=== PATIENT | female | born 1970 | race Two or more races ===

== ENCOUNTER 2024-12-12 06:03 | Inpatient (IN) | payer OTHER, SELFPAY ==
[2024-12-03 11:27] LABS: Hematocrit 38.2 % (37.0-47.0); Hemoglobin 12.7 g/dL (12.0-16.0); Mean Corp Hgb Conc. 33.2 g/dL (33.0-37.0); Mean Corpuscular Hgb 32.3 pg (27.0-31.0); Mean Corpuscular Volume 97.2 fL (81.0-99.0); Mean Platelet Volume 8.9 fL (7.4-10.4); Platelet Count 384 10^3/uL (130-400); Red Blood Cell Count 3.93 10^6/uL (4.20-5.40); Red Cell Dist. Width 12.6 % (11.5-14.5); White Blood Cell Count 6.2 10^3/uL (4.8-10.8)
[2024-12-03 11:30] LABS: INR 0.91; PT 12.6 Sec (11.4-14.6)
[2024-12-03 11:47] LABS: ALT (SGPT) 18 U/L (0-35); AST (SGOT) 22 U/L (14-36); Albumin 4.7 g/dl (3.5-5.0); Alkaline Phosphatase 74 U/L (38-126); Blood Urea Nitrogen 16 mg/dl (7-17); Calcium 9.6 mg/dl (8.4-10.2); Carbon Dioxide 31 mmol/L (22-30); Chloride 100 mmol/L (98-107); Glucose 91 mg/dl (70-99); Potassium 3.9 mmol/L (3.5-5.1); Sodium 140 mmol/L (135-145); Total Bilirubin 0.7 mg/dl (0.2-1.3); Total Protein 7.5 g/dl (6.3-8.2); eGFR > 60.00
[2024-12-03 11:56] LABS: Glycohemoglobin (HgbA1c) 5.8 % (4.0-5.6)
[2024-12-03 14:04] VITALS: BMI 27.9
[2024-12-12] VITALS (17 sets, daily range): BP systolic 121–132; BP diastolic 69–79; BMI 27.9
[2024-12-12] MEDS: NORMOSOL-R/PLASMALYTE-A 1000 IV ×2 (07:11→13:22)
[2024-12-12] MEDS: TYLENOL 1000 MG PO (07:11)
[2024-12-12] MEDS: ENTEREG 12 MG PO (07:11)
[2024-12-12] MEDS: HEPARIN 5000 UNITS SC (07:11)
--- NOTE | 2024-12-12 11:48 | W.IMMPOSTOP ---
Surgical Immed Post Op Note
-
Primary Surgeon: Joey Castanon MD
Assistants: HUBER Acuña and FARSHAD Burton
Pre-op Diagnosis: Recurrent sigmoid diverticulitis
Post-op Diagnosis: Same
Procedure Performed: Robotic sigmoid colectomy with intracorporeal anastomosis
Anesthesia Type: GET
Specimen / Cultures: Sigmoid colon (suture is proximal)
Estimated Blood Loss: 25cc
Complications: None
Operative Findings: Acute and chronic distal sigmoid diverticulitis
28mm EEA
Normal leak test
Patient's updated in the waiting room.
[2024-12-12] MEDS: DILAUDID 0.5 MG IV ×3 (13:12→19:41)
[2024-12-12] MEDS: TORADOL 15 MG IV ×3 (13:25→23:23)
--- NOTE | 2024-12-12 14:09 | SUR.PHASEI ---
medicated for pain with toradol and dilaudid with some relief. taking few ice chips po. urine output adequate. called x2 with updates and room #
[2024-12-12] MEDS: TYLENOL PO (14:48)
[2024-12-12] MEDS: TYLENOL 650 MG PO ×3 (16:44→23:23)
[2024-12-12] MEDS: MYLICON 80 MG PO (23:23)
[2024-12-13] MEDS: NORMOSOL-R/PLASMALYTE-A 1000 IV (01:03)
[2024-12-13 03:00] VITALS: BP 111/65
[2024-12-13] MEDS: TYLENOL PO (03:50)
[2024-12-13] MEDS: DILAUDID 0.5 MG IV (05:17)
[2024-12-13 05:19] VITALS: BMI 27.4
[2024-12-13] MEDS: TORADOL 15 MG IV ×4 (06:20→23:08)
[2024-12-13 06:59] VITALS: BP 113/67
[2024-12-13 07:22] LABS: % Basophils 0.2 % (0-2); % Eosinophils 0.4 % (0-6); % Immature Granulocytes 0.4 % (0-0.5); % Lymphocytes 19.1 % (20.5-51.1); % Monocytes 10.5 % (1.7-9.3); % Neutrophils 69.4 % (42.2-75.2); Absolute Lymphocytes 2.1 10^3/uL (1.2-3.4); Absolute Monocytes 1.2 10^3/uL (0.1-0.6); Absolute Neutrophils 7.7 10^3/uL (1.4-6.5); Hematocrit 30.6 % (37.0-47.0); Hemoglobin 10.6 g/dL (12.0-16.0); Mean Corp Hgb Conc. 34.6 g/dL (33.0-37.0); Mean Corpuscular Hgb 32.9 pg (27.0-31.0); Mean Platelet Volume 9.1 fL (7.4-10.4); Nucleated Red Blood Cells % 0 %; Platelet Count 322 10^3/uL (130-400); Red Blood Cell Count 3.22 10^6/uL (4.20-5.40); Red Cell Dist. Width 12.3 % (11.5-14.5); White Blood Cell Count 11.1 10^3/uL (4.8-10.8)
[2024-12-13 07:49] LABS: Blood Urea Nitrogen 9 mg/dl (7-17); Calcium 8.8 mg/dl (8.4-10.2); Carbon Dioxide 32 mmol/L (22-30); Chloride 97 mmol/L (98-107); Estimated Creatinine Clearance 90 ml/min; Glucose 113 mg/dl (70-99); Potassium 3.3 mmol/L (3.5-5.1); Sodium 135 mmol/L (135-145); eGFR > 60.00
[2024-12-13] MEDS: TYLENOL 650 MG PO ×5 (08:14→23:08)
[2024-12-13] MEDS: ORETIC 12.5 MG PO (08:14)
[2024-12-13] MEDS: ENTEREG 12 MG PO ×2 (08:14→20:04)
[2024-12-13] MEDS: ZESTRIL 20 MG PO (08:14)
[2024-12-13] MEDS: MYLICON 80 MG PO ×3 (08:15→23:12)
[2024-12-13] MEDS: ROXICODONE 5 MG PO ×2 (08:33→20:12)
--- NOTE | 2024-12-13 08:50 | W.PN.CRS1 ---
Today's Communication / Plan
-
fulls
d/c pierce
lovenox
Assessment/Plan
-
POD#1 Robotic sigmoid colectomy with intracorporeal anastomosis
WBC 11.1, vitals normal
-Advance to full liquids
-D/C IVfs when tolerating po
-D/C pierce
-Pain control: Tylenol/Toradol standing, Dilaudid PRN
-Lovenox for DVT prophylaxis, TEDS/SCDS in place
-OR pathology pending
-OOB as tolerated
-OKay to shower
Subjective Data
Procedure
12/12/2024- Robotic sigmoid colectomy with intracorporeal anastomosis
Subjective Data
Date of Service: December 13, 2024
Patient states she is hungry. She tolerated clears. She has no nausea or vomiting. She has no bowel function yet. Her pain is minimal and controlled.
Objective Data
-
Vital Signs
Temp Pulse Resp BP Pulse Ox
98.9 F 76 16 113/67 95
12/13/24 06:59 12/13/24 08:14 12/13/24 06:59 12/13/24 08:14 12/13/24 06:59
Intake & Output
12/12/24 12/13/24 12/14/24
06:59 06:59 06:59
Intake Total 490 / 490 1440 / 1440
Output Total 900 / 900
Balance -410 / -410 1440 / 1440
Intake:
Oral fluids 40 / 40 480 / 480
IV fluids (Total) 450 / 450 960 / 960
normosol 450 / 450
Output:
Urine, Pierce 900 / 900
Lab Results
12/13/24 06:44
12/13/24 06:44
Physical Exam
-
General: No Acute Distress and AOx3
Abdomen: Soft, Non Distended and Tender (mild around incisions)
Skin: Warm and Dry
Incision: Clear, Dry, Intact
[2024-12-13] MEDS: LOVENOX 40 MG SC (09:25)
--- NOTE | 2024-12-13 09:38 | PTCARENOTE ---
Tompkins removed per colorectal surgery order, patient due to void by 1545. Patient tolerating clear liquid diet, diet advanced to fulls, patient made aware. Patient medicated with PRN 5 mg oxycodone for abd pain rated 6/10 - see MAR. 5 lap sites
approximated with surgical adhesive, SCDs in place, patient ringing appropriately.
[2024-12-13] MEDS: ROXICODONE 10 MG PO ×2 (10:43→16:27)
--- NOTE | 2024-12-13 12:06 | CM ---
CM reviewed medical records. CM met with patient in room. Patient confirmed demographics. Patient lives independently with . Patient does not have a history of VN, SNF or DME. Patient is active with her PCP. Patient uses [facility] for medication
services.
PLAN: home no needs.
[2024-12-13 15:24] VITALS: BP 104/61
--- NOTE | 2024-12-13 18:47 | PTCARENOTE ---
Patient voiding in bathroom after pierce removal, states no BM this shift but passing gas frequently, medicated with PRN PO oxycodone throughout shift for abd discomfort and cramping - see MAR. Patient ambulatory in room and webster, tolerating full
liquid diet.
[2024-12-13 23:11] VITALS: BP 107/64
[2024-12-14] MEDS: ROXICODONE 5 MG PO ×3 (02:58→19:34)
[2024-12-14] MEDS: TYLENOL 650 MG PO ×6 (03:00→23:16)
[2024-12-14] MEDS: TORADOL 15 MG IV ×4 (05:13→23:16)
[2024-12-14 05:28] VITALS: BMI 27.3
[2024-12-14 07:02] VITALS: BP 119/67
[2024-12-14 07:36] LABS: % Basophils 0.5 % (0-2); % Immature Granulocytes 0.4 % (0-0.5); % Lymphocytes 19.4 % (20.5-51.1); % Monocytes 11.7 % (1.7-9.3); Absolute Basophils 0.1 10^3/uL (0-0.2); Absolute Eosinophils 0.3 10^3/uL (0-0.7); Absolute Lymphocytes 1.9 10^3/uL (1.2-3.4); Absolute Monocytes 1.2 10^3/uL (0.1-0.6); Absolute Neutrophils 6.4 10^3/uL (1.4-6.5); Hematocrit 30.4 % (37.0-47.0); Hemoglobin 10.4 g/dL (12.0-16.0); Mean Corp Hgb Conc. 34.2 g/dL (33.0-37.0); Mean Corpuscular Hgb 32.6 pg (27.0-31.0); Mean Corpuscular Volume 95.3 fL (81.0-99.0); Mean Platelet Volume 8.6 fL (7.4-10.4); Nucleated Red Blood Cells % 0 %; Platelet Count 317 10^3/uL (130-400); Red Blood Cell Count 3.19 10^6/uL (4.20-5.40); Red Cell Dist. Width 12.5 % (11.5-14.5); White Blood Cell Count 9.9 10^3/uL (4.8-10.8)
[2024-12-14 08:05] LABS: Blood Urea Nitrogen 6 mg/dl (7-17); Calcium 8.9 mg/dl (8.4-10.2); Carbon Dioxide 34 mmol/L (22-30); Chloride 99 mmol/L (98-107); Estimated Creatinine Clearance 105 ml/min; Glucose 113 mg/dl (70-99); Sodium 139 mmol/L (135-145); eGFR > 60.00
[2024-12-14] MEDS: ORETIC 12.5 MG PO (08:05)
[2024-12-14] MEDS: ENTEREG 12 MG PO ×2 (08:06→19:33)
[2024-12-14] MEDS: ZESTRIL 20 MG PO (08:09)
--- NOTE | 2024-12-14 10:55 | W.PN.CRS1 ---
Today's Communication / Plan
-
Low residue
Assessment/Plan
-
POD#2 Robotic sigmoid colectomy with intracorporeal anastomosis (Recurrent sigmoid diverticulitis)
WBC 9.9 (11.1), vitals normal
-Advance to low residue diet
- Voiding post Tompkins removal
-Pain control: Tylenol/Toradol standing, Dilaudid PRN
-Lovenox for DVT prophylaxis, TEDS/SCDS in place
-OR pathology pending
-OOB as tolerated
-OKay to shower
- Possible discharge later today if feeling well. If not we will plan for tomorrow.
Subjective Data
Procedure
12/12/2024- Robotic sigmoid colectomy with intracorporeal anastomosis
Subjective Data
Date of Service: December 14, 2024
Patient states she was not feeling that well today. She has some abdominal pain.. She is not hungry.
Objective Data
-
Vital Signs
Temp Pulse Resp BP Pulse Ox
98.5 F 87 16 119/67 94
12/14/24 07:02 12/14/24 08:09 12/14/24 07:02 12/14/24 08:09 12/14/24 07:02
Intake & Output
12/13/24 12/14/24 12/15/24
06:59 06:59 06:59
Intake Total 490 / 490 2640 / 2640
Output Total 900 / 900
Balance -410 / -410 2640 / 2640
Intake:
Oral fluids 40 / 40 1680 / 1680
IV fluids (Total) 450 / 450 960 / 960
normosol 450 / 450
Output:
Urine, Tompkins 900 / 900
Other:
Number of approximated MODERATE 2
amounts of urine
Lab Results
12/14/24 07:24
04/11/25 07:24
Physical Exam
-
General: No Acute Distress and AOx3
Abdomen: Soft, Non Distended and Tender (Mild around incision)
Skin: Warm and Dry
Incision: Clear, Dry, Intact
--- NOTE | 2024-12-14 11:07 | CM ---
Cm reviewed medical records. Patient is ADAT. As per surgery, possible discharge for today. Cm will remain available.
PLAN; Home no needs.
[2024-12-14] MEDS: KCL 40 MEQ PO (11:27)
--- NOTE | 2024-12-14 14:11 | PN.CDI ---
CDI
- -
CDI:
Physician Documentation Request
Admit Date: 12/12/24 06:03
Dear Doctor Lg/Kacie WHATLEY ,
Please review the following and provide your response in the progress notes.
Clinical Indicators:
Pt admitted with Recurrent sigmoid diverticulitis s/p Robotic sigmoid colectomy with intracorporeal anastomosis
Progress note 12/13 ,' Hgb is low due to dilutional and blood loss from surgery...'
Trended HGB/Hematocrit below
12/03/24 12/14/24
08:35 07:24
Hgb 12.7 10.4 L
Hct 38.2 30.4 L
Please further specify a diagnosis for HGB /'Blood loss from surgery' above :
Acute blood loss anemia
Abnormal lab value only
Other ( please specify)
Use of terms such as suspected, likely, concern for, or probable (associated with a specific diagnosis that is being evaluated, monitored, or treated as if it exists) are acceptable and can be coded in the inpatient setting, when documented at the
time of discharge.
Thank you,
Juana Watson RN
CDI Specialist
[place] [facility]
Please use your independent medical judgment in providing your response.
--- NOTE | 2024-12-14 14:19 | PN.CDI ---
CDI
- -
CDI:
Physician Documentation Request
Admit Date: 12/12/24 06:03
Dear Doctor Lg/Kacie WHATLEY,
Please review the following and provide your response in the progress notes.
Clinical Indicators:
Pt admitted with Recurrent sigmoid diverticulitis s/p Robotic sigmoid colectomy with intracorporeal anastomosis
Potassium levels are as below/ Per MAR did get 40 MEQ KCL 12/14
12/13/24 12/14/24
06:44 07:24
Potassium 3.3 L 3.0 L
Based on the above, could you clarify in the progress notes, the appropriate diagnosis, if significant, that supports the above abnormalities and additional evaluation, monitoring and/or treatment rendered:
Hypokalemia
Abnormal lab value only
Other ( please specify)
Use of terms such as suspected, likely, concern for, or probable (associated with a specific diagnosis that is being evaluated, monitored, or treated as if it exists) are acceptable and can be coded in the inpatient setting, when documented at the
time of discharge.
Thank you,
Juana Watson RN
CDI Specialist
[place] [facility]
Please use your independent medical judgment in providing your response.
[2024-12-14 15:02] VITALS: BP 137/80
[2024-12-14] MEDS: ZOFRAN 4 MG IV (15:24)
[2024-12-14] MEDS: ROXICODONE 10 MG PO (15:27)
--- NOTE | 2024-12-14 16:00 | PTCARENOTE ---
Addendum entered by Valeria Alejandro RN 12/14/24 19:23:
Patient states improvement of symptoms s/p PRN zofran and oxy, showered independently and ambulated in webster with spouse. Low residue diet at bedside, patient states no concerns on change of shift rounds with night nurse RN.
Original Note:
Patient's diet advanced to low residue per colorectal surgery, patient ate small amount for lunch before c/o nausea and abd pain rated 6/10. Patient medicated with PRN zofran and 10 mg PO oxy, colorectal made aware of patient complaints, no new
orders at this time.
[2024-12-14 23:13] VITALS: BP 114/66
[2024-12-15] MEDS: TYLENOL PO (04:00)
[2024-12-15 06:00] VITALS: BMI 27.2
[2024-12-15] MEDS: TORADOL 15 MG IV ×2 (06:13→11:47)
[2024-12-15 07:05] VITALS: BP 115/72
[2024-12-15] MEDS: ORETIC 12.5 MG PO (08:06)
[2024-12-15] MEDS: ZESTRIL 20 MG PO (08:06)
[2024-12-15] MEDS: ENTEREG 12 MG PO (08:06)
[2024-12-15] MEDS: TYLENOL 650 MG PO ×2 (08:06→11:47)
--- NOTE | 2024-12-15 09:32 | W.PN.CRS1 ---
Today's Communication / Plan
-
Dispo planning
Assessment/Plan
-
POD#3 Robotic sigmoid colectomy with intracorporeal anastomosis (Recurrent sigmoid diverticulitis). Doing well, expected postoperative course.
Will DC home later today if she is able to tolerate her low residue diet for lunch.
Subjective Data
Procedure
12/12/2024- Robotic sigmoid colectomy with intracorporeal anastomosis
Subjective Data
Date of Service: December 15, 2024
Interval Events:
No acute events overnight. Slept well. Pain Controlled. Denies Nausea/Vomiting, +bowel function, loose. Tolerating diet.
Objective Data
-
Vital Signs
Temp Pulse Resp BP Pulse Ox
98.7 F 81 12 115/72 92
12/15/24 07:05 12/15/24 07:05 12/15/24 07:05 12/15/24 08:06 12/15/24 07:05
Intake & Output
12/14/24 12/15/24 12/16/24
06:59 06:59 06:59
Intake Total 2640 / 2640 2180 / 2180
Balance 2640 / 2640 2180 / 2180
Intake:
Oral fluids 1680 / 1680 2180 / 2180
IV fluids (Total) 960 / 960
Other:
Number of approximated MODERATE 2 2
amounts of urine
Number of approximated LARGE 5
amounts of urine
Number of unmeasured liquid
stools
Rectum 1
Lab Results
12/14/24 07:24
12/14/24 07:24
Physical Exam
-
General: No Acute Distress
Abdomen: Soft, Non Distended and Tender (Mildly)
Incision: Clear, Dry, Intact
--- NOTE | 2024-12-15 11:41 | CM ---
CM reviewed chart- ADC today pending toleration of diet
per chart review, no dc needs noted
Discharge Disposition- home no needs
--- NOTE | 2024-12-15 13:33 | W.DCSUMMARY ---
Discharge Summary
Discharge Data
Date of Admission: 12/12/24
Date of Discharge: 12/15/24
-
Pending Results: No
Hospital Course
Ms Boland is a 54 yo female with a history of diverticulitis who presented for operative management with robotic sigmoid colectomy preformed. She tolerated the procedure well and diet was able to be advanced post operatively with good bowel
recovery. Pain was able to be controlled with oral analgesics and she was discharged to home for continued outpatient follow up.
Discharge Plan
-
Patient Disposition: Home (Routine Discharge)
Discharge Diagnosis/Procedures: Robotic sigmoid colectomy with intracorporeal anastomosis
Condition: Good
Diet: Low Residue
Activity: No strenuous activity
Additional Activity: No lifting over 10lbs (gallon of milk)
Driving Restrictions: No driving for 1 week
Bathing Restrictions: OK to Shower
Wound Care: Allow glue to naturally fall off. Do not pick at incisions.
Instructions: Low-fiber diet
Referrals:
Miguel Castanon MD [Active] - in two weeks
Miguel Rose DO [Family Provider] -
Additional Discharge Medication Instructions: Tylenol or Ibuprofen as needed for pain. Maximum dose of Tylenol is 4,000mg in 24 hours. Maximum dose of Ibuprofen is 3,200mg in 24 hours.
Prescriptions:
New
tramadol 50 mg tablet
50 mg PO Q6H PRN (Reason: Pain) Qty: 20 0RF
Continued
lisinopril-hydrochlorothiazide 20-12.5 mg Tablet
1 tab PO DAILY
calcium citrate 200 mg (950 mg) Tablet
200 mg PO DAILY
[place] [employer] 45-3.75-50 mg Tablet,Chewable
1 tab PO DAILY
Probiotic
1 dose PO DAILY
Super Beet
1 dose PO DAILY
cranberry
1 dose PO DAILY
Discontinued
metronidazole 500 mg Tablet
500 mg PO DIRECTED
Patient Comments:
2pm 3pm 10pm
neomycin 500 mg Tablet
500 mg PO DIRECTED
Patient Comments:
2pm, 3pm, 10pm
Sutab 1.479-0.188- 0.225 gram Tablet
1 tab PO DIRECTED
Discharge Orders:
Discharge Patient (As Directed); Ordered 12/15/24
Ordered By: Stacia Aaron
Discharge Date and Time
Print Language: YAKUT
[2024-12-15] MEDS: ROXICODONE 5 MG PO (14:21)
[2024-12-15 14:38] VITALS: BP 141/78
--- NOTE | 2024-12-17 09:46 | W.PN.UPDATE ---
Update Note
Progress Note Update
While in the hospital her potassium was low consistent with hypokalemia. It was replaced.
--- NOTE | 2024-12-19 17:34 | W.PN.UPDATE ---
Update Note
Progress Note Update
Her low hemoglobin is due to acute blood loss anemia from surgery and hemodilution.
== END 2024-12-15 15:06 | disposition home or self-care (01) | DRG 330 ==
LOC: 2 NORTH 06:03
PROVIDERS: Physician Assistant; ADMITTING PHYSICIAN Surgery; FAMILY PHYSICIAN Family Medicine
PROC: 8E0W4CZ Robotic Assisted Procedure of Trunk Region, Percutaneous Endoscopic Approach (ICD-10-PCS; 2024-12-12)
PROC: 0DTN4ZZ Resection of Sigmoid Colon, Percutaneous Endoscopic Approach (ICD-10-PCS; 2024-12-12)
DX: K57.20 Diverticulitis of large intestine with perforation and abscess without bleeding (principal); D62 Acute posthemorrhagic anemia; K66.0 Peritoneal adhesions (postprocedural) (postinfection); E87.6 Hypokalemia
CPT/HCPCS: 88307; 36415; 80048; 80053; 83036; 85025; 85027; 85610; 85730; 86850; 86900; 86901; 93005